=== PATIENT | female | born 1935 | race Caucasian/White ===

== ENCOUNTER → 2018-02-03 | Outpatient (CLI) | payer MEDICARE, BC | LOC: OLS 15:24 → LAB SHORT 15:24 | PROVIDERS: Nurse Practitioner Women's Health | DX: Z12.4 Encounter for screening for malignant neoplasm of cervix (principal) | CPT/HCPCS: 87624; G0123 ==

== ENCOUNTER → 2018-03-29 | Outpatient (CLI) | payer MEDICARE, BC | END | disposition home or self-care (01) | LOC: LAB 18:15 → LAB SHORT 18:15 | DX: L13.0 Dermatitis herpetiformis (principal) | CPT/HCPCS: 87529 ==

== ENCOUNTER 2018-04-29 14:35 | Day surgery (SDC) | payer MEDICARE, BC ==
[~2018-04-29] VITALS: Ht 170.2 cm; Wt 73.8 kg
[~2018-04-29 14:35] MED LIST: CENTRUM SILVER1 EAC2 PO; CYCL0.05OP; Diovan Hct 1601 EACH PO; Estrace Vagin42.5 GM VAG; GABA100 PO; Methimazole5 MG PO; SIMV10 PO; TIMOLOL 0.5%-DO10 ML; VERA120 PO
== END 2018-04-29 15:52 | disposition home or self-care (01) ==
LOC: ORSCSDS 14:35
PROVIDERS: Anesthesiology
PROC: 3E0R33Z Introduction of Anti-inflammatory into Spinal Canal, Percutaneous Approach (ICD-10-PCS; principal; 2018-04-29 15:45)
DX: M54.16 Radiculopathy, lumbar region (principal); M96.1 Postlaminectomy syndrome, not elsewhere classified; I10 Essential (primary) hypertension; E05.90 Thyrotoxicosis, unspecified without thyrotoxic crisis or storm; Z79.899 Other long term (current) drug therapy; E78.00 Pure hypercholesterolemia, unspecified; K21.9 Gastro-esophageal reflux disease without esophagitis
CPT/HCPCS: J1040; J2001

== ENCOUNTER 2019-02-24 10:21 | Day surgery (SDC) | payer MEDICARE, BC ==
[~2019-02-24] VITALS: Ht 170.2 cm; Wt 75.0 kg
[2019-02-24] MEDS ORDERED: LOSA25 PO (10:51)
== END 2019-02-24 11:45 | disposition home or self-care (01) ==
LOC: ORSCSDS 10:21
PROVIDERS: Anesthesiology
PROC: 3E0R33Z Introduction of Anti-inflammatory into Spinal Canal, Percutaneous Approach (ICD-10-PCS; principal; 2019-02-24 11:30)
DX: M96.1 Postlaminectomy syndrome, not elsewhere classified (principal); M54.16 Radiculopathy, lumbar region; I10 Essential (primary) hypertension; E05.90 Thyrotoxicosis, unspecified without thyrotoxic crisis or storm; E78.00 Pure hypercholesterolemia, unspecified; K21.9 Gastro-esophageal reflux disease without esophagitis; Z79.899 Other long term (current) drug therapy
CPT/HCPCS: J1040

== ENCOUNTER → 2019-03-01 | Outpatient (CLI) | payer MEDICARE, BC ==
[~2019-03-01] MED LIST changes: +LOSA25 PO
[2019-03-03 15:07] LABS: HPV 16 Negative (Negative); HPV 18 Negative (Negative); HPV OTHER HR TYPES Negative (Negative)
== END | disposition home or self-care (01) ==
LOC: LAB 16:09 → LAB SHORT 16:09
PROVIDERS: Nurse Practitioner Women's Health
DX: Z12.4 Encounter for screening for malignant neoplasm of cervix (principal); Z91.89 Other specified personal risk factors, not elsewhere classified
CPT/HCPCS: 87624; G0123

== ENCOUNTER → 2020-01-19 | Outpatient (CLI) | payer MEDICARE, BC ==
[2020-01-19 11:51] LABS: Free Thyroxine 1.05 ng/dL (0.70-1.60); Thyroid Stimulating Hormone 0.666 uIU/mL (0.360-4.800)
== END | disposition home or self-care (01) ==
LOC: LAB EV 10:48 → LAB SHORT 10:48
PROVIDERS: Physician Assistant
DX: E05.90 Thyrotoxicosis, unspecified without thyrotoxic crisis or storm (principal); J02.9 Acute pharyngitis, unspecified
CPT/HCPCS: 84439; 84443; 84481; 87081

== ENCOUNTER → 2020-05-18 | Outpatient (CLI) | payer MEDICARE, BC ==
[2020-05-18 11:58] LABS: BASOPHILS ABSOLUTE AUTO 0.05 K/mm3 (0.00-0.23); BASOPHILS PERCENT AUTO 1 % (0-2); EOSINOPHILS PERCENT AUTO 2 % (0-6); Hematocrit 43.8 % (33.0-51.0); Hemoglobin 14.6 g/dL (11.5-16.0); IMMATURE GRAN ABSOLUTE AUTO 0.03 K/mm3 (0.00-0.10); IMMATURE GRAN PERCENT AUTO 1 % (0-1); LYMPHOCYTES ABSOLUTE AUTO 1.23 K/mm3 (0.84-5.20); LYMPHOCYTES PERCENT AUTO 19 % (21-46); MONOCYTES ABSOLUTE AUTO 0.66 K/mm3 (0.16-1.47); MONOCYTES PERCENT AUTO 10 % (4-13); Mean Corpuscular HGB 30.9 pg (26.0-34.0); Mean Corpuscular HGB Conc 33.3 g/dL (31.5-36.5); Mean Corpuscular Volume 93 fL (80-100); Mean Platelet Volume 10.7 fL (9.1-12.4); NEUTROPHILS ABSOLUTE AUTO 4.33 K/mm3 (1.96-9.15); NEUTROPHILS PERCENT AUTO 68 % (41-73); Platelet Count 217 K/mm3 (150-400); RDW Coefficient Variation 13.2 % (11.7-14.2); RDW Standard Deviation 44.9 fL (35.1-46.3); Red Blood Cell Count 4.73 M/mm3 (3.80-5.20)
[2020-05-18 12:10] LABS: Alanine Aminotransfer (ALT/SGP 34 U/L (12-78); Albumin, Blood 3.8 g/dL (3.4-5.0); Alk Phos 64 U/L (40-126); Anion Gap 6 mmol/L (6-16); Aspartate Aminotrans (AST/SGOT 23 U/L (12-37); Bilirubin, Total 0.7 mg/dL (0.1-1.0); Blood Urea Nitrogen 17 mg/dL (8-24); Bun/Creatinine Ratio 15.2 (12.0-20.0); CO2, Blood 31 mmol/L (21-32); Calcium, Blood 10.3 mg/dL (8.5-10.1); Chloride, Blood 99 mmol/L (98-108); Creatinine, Blood 1.12 mg/dL (0.40-1.00); Globulin, Blood 3.9 g/dL (2.2-4.0); Glomerular Filtration Rate 47 (60-); Glucose, Blood 102 mg/dL (70-99); Potassium, Blood 3.6 mmol/L (3.5-5.5); Sodium, Blood 136 mmol/L (136-145); Total Protein, Blood 7.7 g/dL (6.4-8.2)
[2020-05-18 12:16] LABS: Troponin I <0.017 ng/mL (0.000-0.040)
[2020-05-18 19:48] LABS: Free Thyroxine 1.11 ng/dL (0.70-1.60)
[2020-05-18 19:50] LABS: Thyroid Stimulating Hormone 0.895 uIU/mL (0.360-4.800); Triiodothyronine, Free 2.29 pg/mL (2.18-3.98)
== END | disposition home or self-care (01) ==
LOC: LAB EV 11:53 → LAB SHORT 11:53
PROVIDERS: Physician Assistant
DX: R07.9 Chest pain, unspecified (principal); E05.90 Thyrotoxicosis, unspecified without thyrotoxic crisis or storm
CPT/HCPCS: 80053; 84439; 84443; 84481; 84484; 85025

== ENCOUNTER → 2020-05-18 | Outpatient (CLI) | payer MEDICARE, BC | END | disposition home or self-care (01) | LOC: LAB SHORT 11:48 → LAB EV 11:48 | DX: E05.90 Thyrotoxicosis, unspecified without thyrotoxic crisis or storm (principal); R07.9 Chest pain, unspecified | CPT/HCPCS: 84439; 84443 ==

== ENCOUNTER → 2021-01-09 | Outpatient (CLI) | payer MEDICARE, BC | LOC: LAB 12:14 → LAB SHORT 12:14 | DX: D48.5 Neoplasm of uncertain behavior of skin (principal); L57.0 Actinic keratosis; L81.4 Other melanin hyperpigmentation | CPT/HCPCS: 88305 ==

== ENCOUNTER → 2022-01-08 | Outpatient (CLI) | payer MEDICARE, BC | END | disposition home or self-care (01) | LOC: LAB SHORT 14:56 | DX: L72.0 Epidermal cyst (principal) | CPT/HCPCS: 88304 ==